=== PATIENT | male | born 1995 | race Caucasian/White ===

== ENCOUNTER 2024-06-02 07:03 | Day surgery (SDC) | payer OTHER ==
[~2024-06-02 07:03] MED LIST: Acetaminophen 1,000 MG in Premix Bag 1 BAG IV SCH; ceFAZolin 2 GM in Sodium Chloride 0.9% 50 ML IV ONE
[2024-06-02] MEDS ORDERED: Lidocaine 1% 20 ML MDV ONE (07:13)
[2024-06-02] MEDS ORDERED: Bupivacaine 0.25% 30 ML SDV ONE (07:13)
[2024-06-02] MEDS ORDERED: Propofol 200 MG/20 ML SDV ONE (07:21)
[2024-06-02] MEDS ORDERED: Ondansetron 4 MG/2 ML SDV ONE (07:21)
[2024-06-02] MEDS ORDERED: Dexamethasone 4 MG/ML 5 ML MDV ONE (07:21)
[2024-06-02] MEDS ORDERED: Rocuronium Bromide 50 MG/5 ML Syringe ONE (07:21)
[2024-06-02] MEDS ORDERED: fentaNYL 250 MCG/5 ML SDV ONE (07:21)
[2024-06-02] MEDS ORDERED: Lidocaine 2% 5 ML SDV ONE (07:21)
[2024-06-02] MEDS ORDERED: Sugammadex Sodium 200 MG/2 ML VIAL IV ONE (07:22)
[2024-06-02] MEDS ORDERED: Naloxone 0.4 MG/ML SDV IVPUSH PRN ×2 (07:23→12:10)
[2024-06-02] MEDS ORDERED: Ondansetron 4 MG/2 ML SDV IVPUSH PRN ×2 (07:23→12:10)
[2024-06-02] MEDS ORDERED: Metoclopramide 10 MG/2 ML SDV IVPUSH PRN ×2 (07:23→12:10)
[2024-06-02] MEDS ORDERED: Morphine 2 MG/ML SYRINGE IVPUSH PRN ×2 (07:23→12:10)
[2024-06-02] MEDS ORDERED: Famotidine 20 MG/2 ML SDV ONE (07:23)
[2024-06-02] MEDS ORDERED: Phenylephrine HCl In 0.9% NaCl 1 MG/10 ML Syringe IVPUSH PRN ×2 (07:23→12:10)
[2024-06-02] MEDS ORDERED: fentaNYL 50 MCG/ML SDV IVPUSH PRN ×2 (07:23→12:10)
[2024-06-02] MEDS ORDERED: HYDROmorphone 1 MG/ML Syringe IVPUSH PRN ×2 (07:23→12:10)
[2024-06-02] MEDS ORDERED: Albuterol 0.083% 2.5 MG/3 ML Neb Soln NEB PRN ×2 (07:23→12:10)
[2024-06-02] MEDS: Lactated Ringers 1,000 ML IV SCH (07:28)
[2024-06-02] MEDS: Pregabalin 75 MG Cap PO SCH (07:30)
[2024-06-02] MEDS ORDERED: ceFAZolin 2 GM Vial ONE (08:08)
[2024-06-02] MEDS ORDERED: Bacitracin Oint 28.35 GM Tube ONE (09:05)
== END 2024-06-02 11:05 | disposition home or self-care (01) ==
LOC: MW.SDS 07:03
PROVIDERS: ATTEND Surgery
DX: D17.1 Benign lipomatous neoplasm of skin and subcutaneous tissue of trunk (principal); Z88.1 Allergy status to other antibiotic agents; Z88.0 Allergy status to penicillin; F17.290 Nicotine dependence, other tobacco product, uncomplicated; Z79.899 Other long term (current) drug therapy
CPT/HCPCS: 21931; 21933; A9270; J0131; J0665; J0690; J1100; J2704; J3010; J7120; 00300; J2405; J3490